=== PATIENT | female | born 1995 | race Caucasian/White ===

== ENCOUNTER 2016-09-12 21:24 | Emergency (ER) | payer OTHER, SELFPAY ==
[~2016-09-12] VITALS: Ht 160 cm; Wt 123.2 kg
[2016-09-12] MEDS ORDERED: predniSONE 20 MG TAB PO ONE (23:15)
[2016-09-12] MEDS ORDERED: PRED20TA PO (23:16)
[2016-09-12 23:26] VITALS: BP 149/77
== END 2016-09-12 23:31 | disposition home or self-care (01) ==
LOC: M ED 22:30
DX: J02.9 Acute pharyngitis, unspecified (principal); F99 Mental disorder, not otherwise specified

== ENCOUNTER 2017-05-05 10:08 | Emergency (ER) | payer OTHER, SELFPAY ==
[2017-05-05] MEDS: IBUPROFEN 600 MG TAB PO (11:13)
== END 2017-05-05 12:40 | disposition home or self-care (01) ==
LOC: M ED 10:08
DX: S43.402A Unspecified sprain of left shoulder joint, initial encounter (principal); X58.XXXA Exposure to other specified factors, initial encounter; Y92.099 Unspecified place in other non-institutional residence as the place of occurrence of the external cause; Y93.K9 Activity, other involving animal care; F17.200 Nicotine dependence, unspecified, uncomplicated
CPT/HCPCS: 73030

== ENCOUNTER → 2017-05-23 | Outpatient (REF) | payer OTHER ==
[2017-05-23 12:51] LABS: BASO # 0.1 10^3/uL (0.0-0.2); BASO % 0.5 % (0.0-1.0); EOS # 0.2 10^3/uL (0.0-0.50); EOS % 2.1 % (0.0-3.0); HEMATOCRIT 37.4 % (36.0-47.0); IMMATURE GRANULOCYTE % 0.3 % (0-3.0); LYMPH # 3.1 10^3/uL (1.5-6.5); LYMPH % 32.5 % (24.0-44.0); MEAN CORPUSCULAR HEMOGLOBIN 28.2 pg (27.0-33.0); MEAN CORPUSCULAR HGB CONC 32.1 g/dl (32.0-36.5); MONO # 0.5 10^3/uL (0.0-0.8); MONO % 5.5 % (0.0-5.0); NEUTROPHILS # 5.7 10^3/uL (1.8-7.7); NEUTROPHILS % 59.1 % (36.0-66.0); PLATELET COUNT, AUTOMATED 332 10^3/uL (150-450); RED BLOOD COUNT 4.25 10^6/uL (4.00-5.40); RED CELL DISTRIBUTION WIDTH 12.9 % (11.5-14.5); WHITE BLOOD COUNT 9.6 10^3/uL (4.0-10.0)
[2017-05-23 13:02] LABS: TOTAL 25(OH) VITAMIN D 20.9 NG/ML (30.0-100.0)
[2017-05-23 13:04] LABS: ALKALINE PHOSPHATASE 93 U/L (45-117); ALT/SGPT 23 U/L (12-78); ANION GAP 7 MEQ/L (8-16); AST/SGOT 10 U/L (7-37); BILIRUBIN,TOTAL 0.2 MG/DL (0.2-1.0); BLOOD UREA NITROGEN 15 MG/DL (7-18); CALCIUM LEVEL 8.7 MG/DL (8.5-10.1); CARBON DIOXIDE LEVEL 25 MEQ/L (21-32); CHLORIDE LEVEL 112 MEQ/L (98-107); CHOLESTEROL LEVEL 136 MG/DL (<200); CREATININE FOR GFR 0.63 MG/DL (0.55-1.30); GLUCOSE, FASTING 100 MG/DL (70-100); HDL CHOLESTEROL 35 MG/DL (>40); POTASSIUM SERUM 4.4 MEQ/L (3.5-5.1); SODIUM LEVEL 144 MEQ/L (136-145); TRIGLYCERIDES LEVEL 103 MG/DL (<150)
[2017-05-23 13:05] LABS: ALBUMIN 3.6 GM/DL (3.2-5.2); ALBUMIN/GLOBULIN RATIO 1.13 (1.00-1.93); CHOLESTEROL RISK RATIO 3.885 (<5); LDL CHOLESTEROL 80.4 MG/DL (<100); NON-HDL-C 101 MG/DL; TOTAL PROTEIN 6.8 GM/DL (6.4-8.2)
[2017-05-23 13:19] LABS: ESTIMATED AVERAGE GLUCOSE 108 MG/DL (60-110); HEMOGLOBIN A1c 5.4 %
[2017-05-23 15:03] LABS: CHLAMYDIA DNA AMPLIFICATION NEGATIVE (NEGATIVE); GC DNA AMPLIFICATION NEGATIVE (NEGATIVE)
[2017-05-24 10:50] LABS: HIV 1&2 SCREEN CENTAUR NEGATIVE (NEGATIVE)
== END ==
LOC: M LAB REF 11:52
DX: Z13.9 Encounter for screening, unspecified (principal)

== ENCOUNTER → 2019-04-09 | Outpatient (REF) | payer OTHER, MEDICAID ==
[~2019-04-09] MED LIST: IBUP-1022 PO; PRED20TA PO
[2019-04-09 13:57] LABS: BASO # 0.1 10^3/uL (0.0-0.2); BASO % 0.5 % (0.0-1.0); EOS # 0.2 10^3/uL (0.0-0.5); EOS % 1.3 % (0.0-3.0); HEMATOCRIT 39.2 % (36.0-47.0); HEMOGLOBIN 12.3 g/dl (12.0-15.5); LYMPH # 3.3 10^3/uL (1.5-5.0); LYMPH % 26.7 % (24.0-44.0); MEAN CORPUSCULAR HEMOGLOBIN 26.8 pg (27.0-33.0); MEAN CORPUSCULAR HGB CONC 31.4 g/dl (32.0-36.5); MEAN CORPUSCULAR VOLUME 85.4 fl (80.0-96.0); MONO # 0.6 10^3/uL (0.0-0.8); MONO % 4.5 % (0.0-5.0); NEUTROPHILS # 8.2 10^3/uL (1.5-8.5); NEUTROPHILS % 66.6 % (36.0-66.0); PLATELET COUNT, AUTOMATED 405 10^3/uL (150-450); RED BLOOD COUNT 4.59 10^6/uL (4.00-5.40); WHITE BLOOD COUNT 12.2 10^3/uL (4.0-10.0)
[2019-04-09 14:10] LABS: ALT/SGPT 23 U/L (12-78); BLOOD UREA NITROGEN 11 MG/DL (7-18); CALCIUM LEVEL 8.8 MG/DL (8.5-10.1); CARBON DIOXIDE LEVEL 25 MEQ/L (21-32); CHLORIDE LEVEL 107 MEQ/L (98-107); CREATININE FOR GFR 0.68 MG/DL (0.55-1.30); GLOMERULAR FILTRATION RATE > 60.0 (>60); GLUCOSE, FASTING 92 MG/DL (70-100); POTASSIUM SERUM 4.1 MEQ/L (3.5-5.1); SODIUM LEVEL 140 MEQ/L (136-145)
[2019-04-09 14:11] LABS: ALBUMIN 3.8 GM/DL (3.2-5.2); BILIRUBIN,TOTAL 0.5 MG/DL (0.2-1.0); CHOLESTEROL LEVEL 179 MG/DL (<200); CHOLESTEROL RISK RATIO 5.774 (<5); FREE T4 0.96 NG/DL (0.76-1.46); HDL CHOLESTEROL 31 MG/DL (>40); LDL CHOLESTEROL 108 MG/DL (<100); NON-HDL-C 148 MG/DL; TOTAL PROTEIN 7.3 GM/DL (6.4-8.2); TRIGLYCERIDES LEVEL 198 MG/DL (<150)
[2019-04-09 14:36] LABS: TOTAL 25(OH) VITAMIN D 23.8 NG/ML (30.0-100.0)
[2019-04-09 15:17] LABS: HEMOGLOBIN A1c 5.5 %
== END ==
LOC: M LAB REF 13:03
PROVIDERS: ATTEND Nurse Practitioner Family
DX: F34.1 Dysthymic disorder (principal); R03.0 Elevated blood-pressure reading, without diagnosis of hypertension; G47.00 Insomnia, unspecified; Z72.0 Tobacco use; E66.01 Morbid (severe) obesity due to excess calories